=== PATIENT | female | born 1980 | race Caucasian/White ===

== ENCOUNTER → 2021-03-04 09:53 | Outpatient (BNVA) | payer SELFPAY | PROVIDERS: Family Provider Family Medicine; PCP Nurse Practitioner; Visit Provider Nurse Practitioner Family | DX: R30.0 Dysuria (principal); N39.0 Urinary tract infection, site not specified | CPT/HCPCS: 81003; 87077; 87086; 87184 ==

== ENCOUNTER → 2022-12-15 11:39 | Outpatient (BNVA) | payer SELFPAY | PROVIDERS: Family Provider Family Medicine; PCP Nurse Practitioner; Visit Provider Nurse Practitioner | DX: E66.9 Obesity, unspecified (principal); Z68.39 Body mass index [BMI] 39.0-39.9, adult | CPT/HCPCS: 80053; 80061; 84443 ==

== ENCOUNTER → 2023-10-19 16:24 | Outpatient (BNVA) | payer MEDICAID, SELFPAY | PROVIDERS: Family Provider Family Medicine; PCP Nurse Practitioner; Visit Provider Nurse Practitioner | DX: R53.83 Other fatigue (principal) | CPT/HCPCS: 85025 ==

== ENCOUNTER → 2024-03-27 16:30 | Outpatient (BNVA) | payer MEDICAID, SELFPAY | PROVIDERS: Family Provider Family Medicine; PCP Nurse Practitioner; Visit Provider Nurse Practitioner | DX: N23 Unspecified renal colic (principal) | CPT/HCPCS: 81000 ==

== ENCOUNTER → 2024-03-28 10:45 | Outpatient (BNVA) | payer MEDICAID, SELFPAY | PROVIDERS: Family Provider Family Medicine; PCP Nurse Practitioner; Visit Provider Nurse Practitioner | DX: R05.9 Cough, unspecified (principal) | CPT/HCPCS: 71046 ==

== ENCOUNTER → 2024-06-13 11:27 | Outpatient (BNVA) | payer MEDICAID, SELFPAY | PROVIDERS: Family Provider Family Medicine; PCP Nurse Practitioner; Visit Provider Nurse Practitioner | DX: F41.8 Other specified anxiety disorders (principal) | CPT/HCPCS: 80053 ==

== ENCOUNTER → 2024-08-21 15:53 | Outpatient (BNVA) | payer MEDICAID, SELFPAY | PROVIDERS: Family Provider Family Medicine; PCP Nurse Practitioner; Visit Provider Nurse Practitioner | DX: F41.8 Other specified anxiety disorders (principal); E04.9 Nontoxic goiter, unspecified | CPT/HCPCS: 80053; 80061; 84439; 84443; 84481 ==

== ENCOUNTER 2024-08-22 10:36 | Outpatient (CLI) | payer MEDICAID, SELFPAY ==
--- NOTE | 2024-08-22 10:40 | MM_ITS ---
WS: [id number] BILATERAL 3D TOMOSYNTHESIS DIGITAL SCREENING MAMMOGRAPHY WITH CAD CLINICAL INFORMATION: SCREENING HISTORY: Screening mammogram. No current complaints. COMPARISON: New baseline TECHNIQUE: Bilateral CC and MLO views. FINDINGS: Scattered fibroglandular densities bilaterally. No suspicious focal mass, asymmetry, calcifications, or architectural distortion. No evidence of malignancy. MM/MM scr BI tomosynthesis [id number] IMPRESSION: DENSITY: There are scattered areas of fibroglandular density. BI-RADS: 1 - Negative. FOLLOW UP: 1 Year Follow-up Recommend return to annual screening mammography.
== END 2024-08-22 10:37 | disposition home or self-care (01) ==
LOC: MOBLMAM 10:37
PROVIDERS: PCP Nurse Practitioner; Visit Provider Nurse Practitioner
DX: Z12.31 Encounter for screening mammogram for malignant neoplasm of breast (principal); R92.323 Mammographic fibroglandular density, bilateral breasts
CPT/HCPCS: 77063; 77067

== ENCOUNTER 2024-08-24 15:20 | Outpatient (CLI) | payer MEDICAID, SELFPAY ==
--- NOTE | 2024-08-24 16:00 | US_ITS ---
WS: [id number] THYROID ULTRASOUND HISTORY: F41.8 - Other specified anxiety disorders COMPARISON: None available. Right lobe: 1.4 cm x 1.0 cm x 3.7 cm (w x ap x l). Volume: 2.5 cm3. Normal size and echotexture. No significant are dominant nodules are present. Left lobe: 1.6 cm x 1.4 cm x 3.7 cm (w x ap x l). Volume: 3.8 cm3. Hypoechoic nodules a few cystic areas in the mid gland. Nodule is well-circumscribed measuring 1.3 x 1.0 x 1.8 cm. No echogenic foci. No significant increased vascularity. Isthmus: 0.4 cm. US/US thyroid [id number] IMPRESSION: 1. TI-RADS 3; mid LEFT thyroid nodule. Follow-up ultrasound suggested at 1, 3 and 5 years for TI-RADS 3 thyroid nodule. 2. Negative RIGHT thyroid lobe.
== END 2024-08-24 15:21 | disposition home or self-care (01) ==
LOC: RAD 15:21
PROVIDERS: Family Provider Family Medicine; PCP Nurse Practitioner; Visit Provider Nurse Practitioner
DX: E04.2 Nontoxic multinodular goiter (principal); F41.8 Other specified anxiety disorders
CPT/HCPCS: 76536

== ENCOUNTER → 2024-12-13 08:11 | Outpatient (BNVA) | payer MEDICAID, SELFPAY | PROVIDERS: Family Provider Family Medicine; PCP Nurse Practitioner; Visit Provider Nurse Practitioner | DX: E04.1 Nontoxic single thyroid nodule (principal) | CPT/HCPCS: 84439; 84443 ==

== ENCOUNTER → 2025-03-13 16:52 | Outpatient (BNVA) | payer MEDICAID, SELFPAY | PROVIDERS: Family Provider Family Medicine; PCP Nurse Practitioner; Visit Provider Nurse Practitioner | DX: E04.1 Nontoxic single thyroid nodule (principal) | CPT/HCPCS: 80053; 84443 ==

== ENCOUNTER → 2025-06-07 08:55 | Outpatient (BNVA) | payer MEDICAID, SELFPAY | PROVIDERS: Family Provider Family Medicine; PCP Nurse Practitioner; Visit Provider Nurse Practitioner | DX: Z13.6 Encounter for screening for cardiovascular disorders (principal); E55.9 Vitamin D deficiency, unspecified; E04.1 Nontoxic single thyroid nodule | CPT/HCPCS: 80053; 80061; 82306; 82607; 84443; 85025 ==

== ENCOUNTER → 2025-08-28 09:16 | Outpatient (BNVA) | payer MEDICAID, SELFPAY | PROVIDERS: Family Provider Family Medicine; PCP Nurse Practitioner; Visit Provider Nurse Practitioner | DX: E04.1 Nontoxic single thyroid nodule (principal); E53.8 Deficiency of other specified B group vitamins | CPT/HCPCS: 82607; 84443 ==

== ENCOUNTER 2025-09-04 13:49 | Outpatient (CLI) | payer MEDICAID, SELFPAY ==
--- NOTE | 2025-09-04 13:40 | MM_ITS ---
WS: [id number] BILATERAL 3D TOMOSYNTHESIS DIGITAL SCREENING MAMMOGRAPHY WITH CAD CLINICAL INFORMATION: Z12.31 - Encounter for screening mammogram for malignant ... HISTORY: Screening mammogram. No current complaints. COMPARISON: 2023 TECHNIQUE: Bilateral CC and MLO views. FINDINGS: Scattered fibroglandular densities bilaterally. No suspicious focal mass, asymmetry, calcifications, or architectural distortion. No evidence of malignancy. MM/MM scr tomosynthesis [id number] IMPRESSION: DENSITY: There are scattered areas of fibroglandular density. BI-RADS: 1 - Negative. FOLLOW UP: 1 Year Follow-up Recommend return to annual screening mammography.
== END 2025-09-04 13:50 | disposition home or self-care (01) ==
LOC: MOBLMAM 13:51
PROVIDERS: Family Provider Family Medicine; PCP Nurse Practitioner; Visit Provider Nurse Practitioner
DX: Z12.31 Encounter for screening mammogram for malignant neoplasm of breast (principal); E04.1 Nontoxic single thyroid nodule; E53.8 Deficiency of other specified B group vitamins; R92.323 Mammographic fibroglandular density, bilateral breasts
CPT/HCPCS: 77063; 77067

== ENCOUNTER 2025-09-05 14:38 | Outpatient (CLI) | payer MEDICAID, SELFPAY ==
--- NOTE | 2025-09-05 14:45 | US_ITS ---
WS: [id number] THYROID ULTRASOUND HISTORY: E04.1 - Nontoxic single thyroid nodule COMPARISON: 08/24/2024 Right lobe: 1.4 cm x 1.1 cm x 3.8 cm (w x ap x l). Volume: 2.8 cm3. Normal size and echotexture. No significant are dominant nodules are present. Left lobe: 2.0 cm x 1.2 cm x 4.4 cm (w x ap x l). Volume: 5.2 cm3. Hypoechoic nodule in the mid thyroid with a few cystic areas. Circumscribed borders. Nodule measures 2.2 x 1.5 x 0.9 cm. This nodule is increased in size. No echogenic foci. There are a few additional smaller nodules which are unchanged. Isthmus: 0.2 cm. US/US thyroid [id number] IMPRESSION: 1. TI-RADS 3; LEFT thyroid nodule. Nodule does not fit criteria for fine-needl e aspiration as per the TI-RADS criteria. Continued yearly ultrasound evaluatio n. As the nodule has increased in size since the prior study recommend at ultra sound follow-up at 1, 3 and 5 years.
== END 2025-09-05 14:39 | disposition home or self-care (01) ==
LOC: RAD 14:39
PROVIDERS: Family Provider Family Medicine; PCP Nurse Practitioner; Visit Provider Nurse Practitioner
DX: E04.1 Nontoxic single thyroid nodule (principal); E53.8 Deficiency of other specified B group vitamins; R09.89 Other specified symptoms and signs involving the circulatory and respiratory systems
CPT/HCPCS: 76536